=== PATIENT | female | born 2000 | race Caucasian/White ===

== ENCOUNTER 2025-01-15 21:23 | Emergency (ER) | payer BC, SELFPAY ==
[2025-01-15 21:27] VITALS: BP 135/83; PULSE 96; RESP 16; TEMP 36.6; O2SAT 98; BMI 22.6
--- NOTE | 2025-01-15 21:57 | ED.FEMALEGU ---
HPI - Female Genitourinary General Chief complaint: Urogenital Problems, Female Stated complaint: Yeast Infection Time Seen by Provider: 01/15/25 21:39 History of Present Illness HPI Narrative: This 24-year-old female comes in reporting vaginal itching and small amount of discharge typical of a yeast infection. The symptoms started today. She states that she has not been on any antibiotics recently. She has not had symptoms like this previously. Related Data Home Medications ?Medication ?Instructions ?Recorded ?Confirmed norgestimate 0.25 mg-ethinyl 1 tab PO DAILY 01/15/25 01/15/25 estradiol 0.035 mg tablet (Estarylla) Previous Rx's ?Medication ?Instructions ?Recorded fluconazole 100 mg tablet 100 mg PO DAILY #10 tabs 01/15/25 (Diflucan) Allergies Allergy/AdvReac Type Severity Reaction Status Date / Time No Known Drug Allergies Allergy Verified 01/15/25 21:30 Review of Systems Status of ROS: Reports: 10 or more systems reviewed and unremarkable except as noted in History and below Narrative: Constitutional: No fevers, no weight gain or loss. Eyes: No discharge. No vision changes. HENT: No congestion, no sore throat, no ear pain. Cardiovascular: No chest pain, no palpitations. Respiratory: No shortness of breath, no wheezes, no cough. Gastrointestinal: No abdominal pain, no vomiting, no diarrhea. Genitourinary: No dysuria, no hematuria. Vaginal itching. Musculoskeletal: Normal range of motion. Skin: No rashes, no pruritis. Neurological: No dizziness, weakness, sensory change, speech change. Endo/Heme/Allergies: No bruising or bleeding. No polydipsia. Pysch: no suicidality, no anxiety, no insomnia. All other systems reviewed and are negative. PFSH PFS Social History Non-prescribed substance use: denies use Exam Narrative: Exam Narrative: Constitutional: Well-developed, well-nourished, no acute distress. HEENT: Normocephalic, atraumatic. Neck: Normal range of motion. Nontender. Supple. Heart: Intact distal pulses. Lungs: No chest discomfort. No wheezes, rhonchi, or rales. Abdomen: Nontender. Back: Normal range of motion. Extremities: Normal range of motion. No injury. Skin: Intact. No rash. Warm. No erythema or pallor. Neurologic: No altered sensation. No weakness. Alert and oriented. Psychiatric: No suicidality. No anxiety or depression. No insomnia. Nursing notes and vitals signs are reviewed. Const: Vital Signs, click to edit/add: Vital Signs - 24 hr 01/15/25 21:27 Temperature 98 F Pulse Rate [Pulse Oximeter] 96 Respiratory Rate 16 Blood Pressure [Ri ght Upper Arm] 135/83 Pulse Oximetry 98 Oxygen Delivery Me thod Room Air Course Vital Signs Vital signs: Initial Vital Signs Temperature 98 F 01/15/25 21:27 Temperature Source Temporal Artery Scan 01/15/25 21:27 Pulse Rate 96 01/15/25 21:27 Respiratory Rate 16 01/15/25 21:27 Blood Pressure 135/83 01/15/25 21:27 Blood Pressure Mean 100 01/15/25 21:27 Blood Pressure Position Sitting 01/15/25 21:27 Pulse Oximetry 98 01/15/25 21:27 Oxygen Delivery Method Room Air 01/15/25 21:27 Vital Signs Temperature 98 F 01/15/25 21:27 Pulse Rate 96 01/15/25 21:27 Respiratory Rate 16 01/15/25 21:27 Blood Pressure 135/83 01/15/25 21:27 Pulse Oximetry 98 01/15/25 21:27 Oxygen Delivery Method Room Air 01/15/25 21:27 Temperature 98 F 01/15/25 21:27 Pulse Rate 96 01/15/25 21:27 Respiratory Rate 16 01/15/25 21:27 Blood Pressure 135/83 01/15/25 21:27 Pulse Oximetry 98 01/15/25 21:27 Oxygen Delivery Method Room Air 01/15/25 21:27 MDM - Female Genitourinary MDM Narrative Medical decision making narrative: This patient comes in reporting symptoms typical of a vaginal yeast infection. She arrives with normal vital signs. She has not used any gwgi-rxl-goybvvq meds. The patient did receive an oral dose of Diflucan here. I provided a prescription for the same from her preferred pharmacy. I also recommended jrmo-its-qfdwqoa creams that can be used for symptomatic relief. Discharge Plan Discharge Clinical Impression: Candidiasis, vagina Patient Disposition: Home, Self-Care Condition: Stable Additional Instructions: Take medication as prescribed. Okay to use zucd-trx-uenpqju topical creams such as nystatin or Lotrimin. Follow up with MD return if worsening. Prescriptions: New fluconazole [Diflucan] 100 mg tablet 100 mg PO DAILY Qty: 10 0RF No Action norgestimate-ethinyl estradiol [Estarylla] 0.25-0.035 mg tablet 1 tab PO DAILY Stand Alone Forms: [employer] Info Instructions
[2025-01-15] MEDS: FLUCONAZOLE 100 MG TABLET 200 MG PO (22:25)
--- OUTSIDE RECORDS SUMMARY | 2025-01-15 22:26 | XMS_ITS | Clinical Summary ---
Author Organization [facility] Address [address] [place] [address] Care Team Providers Care Printed Circuit Boards Solder Leveler Name Role Phone Pcp, No Primary Care Provider Unavailabl e Allergies Active Allergy Reactions Criticality Noted Date Comments Shellfish Containing Products Vomiting 2021 Tree Nuts Anaphylaxis High 04/08/2018 Medications EPINEPHrine (EPIPEN) 0.3 mg/0.3 mL auto-injectorI ndications:All ergic reaction, initial encounter Inject 0.3 mg (1 pen.) intramuscular each time if needed for Allergic Reaction. 2 Each 3 3 Active norgestimate-e thinyl estradiol, 0.25-35 mg-mcg, (ORTHO-CYCLEN) 0.25-35 mg-mcg tablet Take 1 Tablet by mouth once daily. 4 Active tiZANidine (ZANAFLEX) 4 mg tabletIndicati ons:Strain of mid-back, initial encounter Take 1 Tablet (4 mg) by mouth every 6 hours if needed for Muscle Spasm. 20 Tablet 4 Active Active Problems Problem Noted Date Diagnosed Date Scoliosis 05/24/2015 Immunizations Immunization Administration Dates Next Due DTaP 04/06/2008, 5,07/16/2003,03/28,01/22/2003 HIB PRP-T (ActHIB,Hiberix) 2003,03/28/2003 ,2002 Hepatitis A (Adult) 05/24/2015 Hepatitis A, Unspecified 05/24/2015 Hepatitis B (Peds) 2002 Hepatitis B, Unspecified 10/22/2003,01/22/2003 Hib Conjugate, Unspecified 2003,03/28/2003 ,2002 Inactivated Polio Vaccine 04/06/2008,06/2003,03/28/2003,01/22 Influenza Virus, Unspecified 07/20/2007 MMR 04/06/2008,10/22/2003 Meningococcal Vaccine (Menactra) 05/24/2015 Pneumococcal conj 7-Valent (Prevnar 7) 0 10/22/2003,07/16/2003,03/28/2003,01/22 Tdap 05/24/2015 Varicella Vaccine 04/06/2008,10/22/2003 Family History Medical History Relation Name Comments No Known Problems Father No Known Problems Maternal Grandfather No Known Problems Maternal Grandmother No Known Problems Mother Diabetes type II Paternal Grandfather No Known Problems Sister Relation Name Status Comments Father Alive Maternal Grandfather Maternal Grandmother Mother Alive Paternal Grandfather Paternal Grandmother Alive Sister Alive Social History Tobacco Use Types Packs/Day Years Used Date Smoking Tobacco: Never Smokeless Tobacco: Never Alcohol Use Standard Drinks/Week Comments Yes 70 (1 standard drink = 0.6 oz pu re alcohol) ONCE OR TWICE A WEEK PHQ-2 Answer Date Recorded PHQ-2 TOTAL SCORE 2 01/27/2024 Social Connections Answer Date Recorded Frequency of Communication with Friends and Fami ly Not on file 09/06/2021 Financial Resource Strain Answer Date R ecorded Difficulty of Paying Living Expenses Not on file 09/06/2021 Difficulty of Paying Living Expenses Not on file 09/06/2021 Interpersonal Safety Answer Date Record ed Are you being hit, kicked, p ushed or yelled at (see row info)? 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 Not on file Not on f ile Obstetrics History Last Filed Vital Signs Vital Sign Reading Time Taken Comments Blood Pressure 125/81 10/16/2024 7:43 AM THREADER OPERATOR Pulse 92 10/16/2024 7:43 AM THREADER OPERATOR Temperature 36.9 C (98.4 F) 10/16/2024 7:43 AM THREADER OPERATOR Respiratory Rate 18 10/16/2024 7:43 AM THREADER OPERATOR Oxygen Saturation 98% 10/16/2024 7:43 AM THREADER OPERATOR Inhaled Oxygen Concentration - - Weight 63.5 kg (140 lb) 10/16/2024 7:43 AM THREADER OPERATOR Height 167.6 cm (5' 6) 10/16/2024 7:43 AM THREADER OPERATOR Body Mass Index 22.6 10/16/2024 7:43 AM THREADER OPERATOR Plan of Treatment Health Maintenance Due Date Last Done Comments HIV for age 15-65 2017 HPV series for age 9-26 (1 - 3-dose series) 2017 Chlamydia for age 16-24 2018 Hepatitis C screening for age 18-79 2020 Pap test for age 21-65 2023 COVID-19 vaccine series ( season) 2024 BMI (ht and wt on same day) for age 18+ 01/13/2025 01/14/2024, 09/15/2021, 08/13/2021 Depression screening for age 12+ 01/26/2025 01/27/2024, 01/15/2024, 01/14/2024, Additional history exists Influenza Vaccine (Season Ended) 2025 07/20/2007 Tetanus booster 05/24/2025 05/24/2015 Pneumococcal series for age 6-49 Aged Out 10/22/2003, 07/16/2003, 03/28/2003, Additional history exists No longer eligible based on patient's age to complete this topic Tdap Completed 05/24/2015 Insurance [employer] [id number] [place] [id number] [facility] [employer] [id number] [place] [id number] Care Teams Printed Circuit Boards Solder Leveler Relationship Specialty Start Date End Date Pcp, No . PCP - General 11/12/22
--- OUTSIDE RECORDS SUMMARY | 2025-01-15 22:26 | XMS_ITS | Clinical Summary ---
Author Organization [facility] Address [address] [place] [address] Care Team Providers Care Professor Of Musicology Name Role Phone Clinic - [facility] Primary Care Provider Allergies Active Allergy Reactions Criticality Noted Date Comments No Clinical Screening - See Comments Swelling 05/23/2015 Tree nuts/ rash Medications metroNIDAZOLE (FLAGYL) 500 MG tabletIndicatio ns:Bacterial vaginosis Take 1 tablet (500 mg) by mouth 2 times daily 14 tablet 3 Active fluconazole (DIFLUCAN) 150 MG tabletIndicatio ns:Bacterial vaginosis Take 1 po after finishing antibiotic 1 tablet 3 Active Active Problems Problem Noted Date Diagnosed Date Scoliosis 05/24/2015 Immunizations Immunization Administration Dates Next Due DTAP (<7y) 04/06/2008, 5,07/16/2003,03/28/2003, 01/22/2003 HEPA 05/24/2015 HIB (PRP-T) 2003,03/28/2003,2002 HepB 10/22/2003,01/22/2003,2002 MMR (MMRII) 04/06/2008,10/22/2003 Meningococcal ACWY (Menactra ) 05/24/2015 Pneumococcal (PCV 7) 10/22/2003,07/16/2003,03/28,01/22/2003 Poliovirus, inactivated (IPV) 04/06/2008, 003,03/28/2003,01/22/2003 TDAP Vaccine (Adacel) 05/24/2015 Varicella (Varivax) 04/06/2008,10/22/2003 Family History Medical History Relation Comments Heart Disease Mother defect Relation Status Comments Father Alive Maternal Grandfather Maternal Grandmother Mother Alive Paternal Grandfather Alive Paternal Grandmother Alive Sister Alive Social History Tobacco Use Types Packs/Day Years Used Date Smoking Tobacco: Never Tobacco Cessation:Counseling Given: Not Answered Alcohol Use Standard Drinks/Week Comments Not Asked 0 (1 standard drink = 0.6 oz pur e alcohol) Adolescent Education Answer Date Record ed Getting School Help Needed Not on file 06/22 Comments No Sex and Gender Information Value Date Recorded Sex Assigned at Not on file Legal Sex Female 11:20 AM CDT Gender Identity Not on file Sexual Orientation Not on file Last Filed Vital Signs Vital Sign Reading Time Taken Comments Blood Pressure 136/85 06/21/2023 7:35 PM CDT Pulse 80 06/21/2023 7:35 PM CDT Temperature 36.9 C (98.5 F) 06/21/2023 7:35 PM CDT Respiratory Rate 20 06/21/2023 7:35 PM CDT Oxygen Saturation 98% 06/21/2023 7:35 PM CDT Inhaled Oxygen Concentration - - Weight 67.3 kg (148 lb 6.4 oz) 06/21/2023 7:35 P M CDT Height 160 cm (5' 3) 05/24/2015 4:00 PM CDT Body Mass Index - - Plan of Treatment Health Maintenance Due Date Last Done Comments ADVANCE CARE PLANNING 2002 ANNUAL REVIEW OF HM ORDERS 2002 YEARLY PREVENTIVE VISIT 05/24/2016 05/24/2015 HIV SCREENING 2017 HPV IMMUNIZATION (1 - 3-dose series) 2017 MENINGITIS B IMMUNIZATION (1 of 2 - Standard) 2018 HEPATITIS C SCREENING 2020 PAP 2023 COVID-19 Vaccine ( - season) 2024 CHLAMYDIA SCREENING 06/21/2024 06/21/2023 PHQ-2 (once per calendar year) 2024 INFLUENZA VACCINE (Season Ended) 2025 07/20/2007 DTAP/TDAP/TD IMMUNIZATION (7 - Td or Tdap) 05/24/2025 05/24/2015, 04/06/2008, 10/22/2004, Additional history exists ZOSTER IMMUNIZATION (1 of 2) 2052 HEPATITIS B IMMUNIZATION Completed 004, 10/22/2003, 01/22/2003, Additional history exists Pneumococcal Vaccine: Pediatrics (0 to 5 Years) and At-Risk Patients (6 to 49 Years) Aged Out 10/22/2003, 07/16/2003, 03/28/2003, Additional history exists No longer eligible based on patient's age to complete this topic MENINGITIS IMMUNIZATION Aged Out 05/24/2015 No l onger eligible based on patient's age to complete this topic Procedures Procedure Name Priority Date/Time Associated Diagnosis Comments CHLAMYDIA TRACHOMATIS PCR Routine 06/21/2023 8:06 PM CDT Dysuria from Last 3 Months or Most Recently Relevant to Health Maintenance Results * CHLAMYDIA TRACHOMATIS PCR (06/21/2023 8:06 PM CDT) Chlamydia trachomatis Negative Negative 06/22/2023 5:58 PM CDT [facility] Comment:A negative result by site promotion agent mediated amplification does not preclude the presence of C. trachomatis infection because results are dependent on proper and adequate collection, absence of inhibitors and sufficient rRNA to be detected. Swab VAGINAL STRUCTURE / Unknown Non-blood Collection / Unknown 06/21/2023 8:06 PM CDT 06/21/2023 8:08 PM CDT us Promise Langston PA-C LAB - MICRO GENERA L ORDERABLES Final Result [facility] Inf. Diseases Diag. Lab [address] [facility] [place] [address], [place] [phone] from Last 3 Months or Most Recently Relevant to Health Maintenance [place] [id number] [place] [address] Care Teams Professor Of Musicology Relationship Specialty Start Date End Date [facility] [address] [place] [address] PCP - General Clinic 05/24/15
--- OUTSIDE RECORDS SUMMARY | 2025-01-15 22:26 | XMS_ITS | Clinical Summary ---
Author Organization [facility] Address [address], [place] [address] Care Team Providers Care Real Estate Agency Principal Name Role Phone Needs Pcp, Assignment Primary Care Provider Source Comments You are receiving this document as you are listed as the primary care provider,follow-up provider, or the patient has been referred to you for consultation.This is in compliance with the Medicare andMedicaid EHR Incentive Program,which states Providers who transition their patient to another setting of careor provider of care or refers their patient to another provider of care shouldprovide summary care record for each transition of care or referral. [facility] Allergies Active Allergy Reactions Criticality Noted Date Comments Shellfish-Derived Products Other, see comments 11/29/2023 Vomiting Nuts Anaphylaxis High 11/29/2023 Medications tiZANidine (ZANAFLEX) 4 MG tablet Take 1 Tablet (4 mg) by mouth every 6 hours as needed. 04/27/2024 Active norgestimate-eth estradiol (ESTARYLLA) 0.25-35 MG-MCG tablet TAKE 1 TABLET BY MOUTH DAILY. TAKE CONTINUOUSL Y. 112 Tablet 11/29/2024 Active Active Problems No known active problems Encounters Date Type Department Care Team Description 11/29/2024 Refill [facility] [address] [place] [address] Ruth Scott, ELECTRIC MELT OPERATOR, DIRECTOR OF MARKET RESEARCH Refill (ESTARYLLA 0.25-35 MG-MCG tablet [Pharmacy Med Name: ESTARYLLA TABLETS 28S]) from Last 3 Months Immunizations Immunization Administration Dates Next Due DTaP 04/06/2008, 5,07/16/2003,03/28/20 03,01/22/2003 HepA Adult (19+ yrs) 05/24/2015 HepB Ped/Adol (0-18 yrs) 2002 HepB, Unspecified Formulation 10/22/2003, 003 Hib, Unspecified Formulation 2003,03/28/20 03,2002 IPV (Polio) 04/06/2008, 3,03/28/2003,01/23/20 03 Influenza, Unspecified Formulation 07/20/2007 MCV4 (Menactra) 05/24/2015 MMR 04/06/2008,10/22/2003 Pneumococcal 7, PED 10/22/2003, 3,03/28/2003,01/23/20 03 Tdap 05/24/2015 Varicella 04/06/2008,10/22/2003 Family History Medical History Relation Name Comments Hypertension Father Stroke Father Relation Name Status Comments Father Mother Alive Social History Tobacco Use Types Packs/Day Years Used Date Smoking Tobacco: Every Day Smokeless Tobacco: Never Alcohol Use Standard Drinks/Week Comments Yes 0 (1 standard drink = 0.6 oz pur e alcohol) 1-2 q week PHQ-2 Answer Date Recorded PHQ-2 Score 3 10/23/2020 Comments No Sex and Gender Information Value Date Recorded Sex Assigned at Not on file Legal Sex Female 5:59 PM CDT Gender Identity Not on file Sexual Orientation Not on file 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 on file Not on file Last Filed Vital Signs Vital Sign Reading Time Taken Comments Blood Pressure 104/61 05/05/2024 8:24 AM CDT Pulse 77 05/05/2024 8:24 AM CDT Temperature 36.9 C (98.5 F) 11/29/2023 1:03 PM CDT Respiratory Rate 16 11/29/2023 1:03 PM CDT Oxygen Saturation 95% 11/29/2023 2:00 PM CDT Inhaled Oxygen Concentration - - Weight 64.9 kg (143 lb 1.6 oz) 05/05/2024 8:24 A M CDT Height 167.6 cm (5' 6) 11/29/2023 1:03 PM CDT Body Mass Index 23.1 11/29/2023 1:03 PM CDT Plan of Treatment Health Maintenance Due Date Last Done Comments Cervical Cancer Screening Due 2002 Hep C Screening (Preventive Services) 2002 MenB Immunization Discussion 2002 HepA Vaccine (2 of 2 - Risk 2-dose series) 11/22/2015 05/24/2015 HPV Vaccine (1 - 3-dose series) 2017 HIV Screening (Preventive Services) 2018 Adult Preventive Visit 2020 Pneumococcal Vaccine (1 of 2 - PCV) 2021 10/22/2003, 07/16/2003, 03/28/2003, Additional history exists COVID-19 Vaccine ( - season) 2024 Chlamydia 06/21/2024 06/21/2023, 06/06, 10/23/2020, Additional history exists Influenza Vaccine (Season Ended) 2025 07/20/2007 DTaP/Tdap/Td Vaccine (7 - Tdap) 05/24/2025 05/24/2015, 04/06/2008, 10/22/2004, Additional history exists Zoster/Shingles Vaccine (1 of 2) 2052 Hib Vaccine Aged Out 2003, 03/07, 2002 No longer eligible based on patient's age to complete this topic HepB Vaccine Completed 10/22/2003, 01/04, 2002 IPV (Polio) Vaccine Completed 04/06/2008, 07/16/2003, 03/28/2003, Additional history exists Varicella Vaccine Completed 04/06/2008, 10/22/2003 MCV4 Vaccine Aged Out 05/24/2015 No longer eligi ble based on patient's age to complete this topic Procedures Procedure Name Priority Date/Time Associated Diagnosis Comments CHLAMYDIA & GC, URINE (14 YEARS AND OLDER) Routine 10/23/2020 11:52 AM SPLIT LEATHER DEPARTMENT SUPERVISOR Vaginal discharge Screening for STDs (sexually transmitted diseases) from Last 3 Months or Most Recently Relevant to Health Maintenance Results * Chlamydia & GC, Urine (14 Years and Older) (10/23/2020 11:52 AM SPLIT LEATHER DEPARTMENT SUPERVISOR) Chlamydia Trachomatis STD Not Detected Not Detected 10/23/2020 7:54 PM SPLIT LEATHER DEPARTMENT SUPERVISOR [facility] N. gonorrhoeae STD Not Detected Not Detected 10/23/2020 7:54 PM SPLIT LEATHER DEPARTMENT SUPERVISOR [facility] Urine STD (Urine for STD) Non-blood Collection / Unknown 10/23/2020 11:52 AM SPLIT LEATHER DEPARTMENT SUPERVISOR 10/23/2020 11:52 AM SPLIT LEATHER DEPARTMENT SUPERVISOR Narrative [facility] - 10/23/2020 7:54 PM SPLIT LEATHER DEPARTMENT SUPERVISOR Test performed by Molecular Detection Urine Volume submitted was greater than 30 ml. Excess collection volume may decrease test sensitivity. us [place] APRN, DIRECTOR OF MARKET RESEARCH LAB_1 Daysi l Result [facility] [address] [address], [facility] [phone] from Last 3 Months or Most Recently Relevant to Health Maintenance Insurance [id number] [place] [id number] [facility] [place] [id number] [facility] [address] [place] [address] Care Teams Real Estate Agency Principal Relationship Specialty Start Date End Date Needs Pcp, [place] [address] PCP - General 01/11/24
== END 2025-01-15 22:26 | disposition home or self-care (01) ==
LOC: ED 22:24
PROVIDERS: Emergency Provider Emergency Medicine Emergency Medical Services
DX: B37.31 Acute candidiasis of vulva and vagina (principal)
CPT/HCPCS: 99283; 99284; A9270